=== PATIENT | female | born 1990 | race Caucasian/White ===

== ENCOUNTER → 2021-04-05 | Outpatient (CLI) | payer OTHER | LOC: LAB 10:06 | DX: Z32.00 Encounter for pregnancy test, result unknown (principal) | CPT/HCPCS: 36415; 84702 ==

== ENCOUNTER → 2021-04-07 | Outpatient (CLI) | payer OTHER | LOC: LAB 11:29 | DX: Z32.01 Encounter for pregnancy test, result positive (principal) | CPT/HCPCS: 36415; 84702 ==

== ENCOUNTER → 2021-04-14 | Outpatient (CLI) | payer OTHER | LOC: LAB 09:40 | DX: Z32.01 Encounter for pregnancy test, result positive (principal) | CPT/HCPCS: 36415; 84702 ==

== ENCOUNTER 2021-06-05 19:05 | Emergency (ER) | payer BC, OTHER ==
[2021-06-05 23:24] LABS: HEMOGLOBIN 11.9 gm/dl (12.3-15.3); RED BLOOD COUNT 5.21 M/UL (4.00-5.10); WHITE BLOOD COUNT 11.6 K/UL (4.5-11.0)
[2021-06-05 23:56] LABS: BUN/CREATININE RATIO 19 (0-10)
== END 2021-06-06 05:47 | disposition home or self-care (01) ==
LOC: ER1 19:05
PROVIDERS: Physician Assistant
DX: O21.0 Mild hyperemesis gravidarum (principal); Z3A.12 12 weeks gestation of pregnancy
CPT/HCPCS: 80053; 81001; 85025; 87086; 96374; 99284; J2765

== ENCOUNTER 2021-08-01 16:58 | Emergency (ER) | payer BC, OTHER ==
[2021-08-01 18:11] LABS: HEMOGLOBIN 10.1 gm/dl (12.3-15.3); RED BLOOD COUNT 4.31 M/UL (4.00-5.10); WHITE BLOOD COUNT 9.3 K/UL (4.5-11.0)
[2021-08-01 18:36] LABS: BUN/CREATININE RATIO 12 (0-10)
== END 2021-08-01 19:40 | disposition home or self-care (01) ==
LOC: ER1 16:58
PROVIDERS: Emergency Medicine
DX: M79.89 Other specified soft tissue disorders (principal)
CPT/HCPCS: 80053; 83615; 83880; 84550; 85025; 93971; 99283

== ENCOUNTER 2021-09-11 15:58 | Emergency (ER) | payer BC, OTHER ==
[2021-09-11 17:04] LABS: HEMOGLOBIN 9.8 gm/dl (12.3-15.3); RED BLOOD COUNT 4.24 M/UL (4.00-5.10); WHITE BLOOD COUNT 11.8 K/UL (4.5-11.0)
[2021-09-11 17:36] LABS: BUN/CREATININE RATIO 9 (0-10)
== END 2021-09-11 18:39 | disposition home or self-care (01) ==
LOC: ER1 15:58
PROVIDERS: Emergency Medicine
DX: O99.891 Other specified diseases and conditions complicating pregnancy (principal); R07.89 Other chest pain; Z20.822 Contact with and (suspected) exposure to COVID-19; Z3A.26 26 weeks gestation of pregnancy
CPT/HCPCS: 71045; 80053; 81001; 82550; 82553; 83735; 83874; 84484; 85025; 93005; 99285; U0002

== ENCOUNTER 2021-09-13 19:42 | Outpatient (CLI) | payer BC, OTHER | END 2021-09-13 21:51 | disposition home or self-care (01) | LOC: GENOP 19:42 | DX: O99.891 Other specified diseases and conditions complicating pregnancy (principal); M54.9 Dorsalgia, unspecified; R11.0 Nausea; R10.9 Unspecified abdominal pain; N89.8 Other specified noninflammatory disorders of vagina; O36.8120 Decreased fetal movements, second trimester, not applicable or unspecified; O99.012 Anemia complicating pregnancy, second trimester; D64.9 Anemia, unspecified; Z3A.27 27 weeks gestation of pregnancy | CPT/HCPCS: 59025; 81001; 82731; 83518 ==

== ENCOUNTER 2021-09-17 16:31 | Outpatient (CLI) | payer BC, OTHER | END 2021-09-17 18:03 | disposition home or self-care (01) | LOC: GENOP 16:31 | DX: O36.8120 Decreased fetal movements, second trimester, not applicable or unspecified (principal); O99.012 Anemia complicating pregnancy, second trimester; D64.9 Anemia, unspecified; Z3A.27 27 weeks gestation of pregnancy | CPT/HCPCS: 59025 ==

== ENCOUNTER 2021-09-30 12:53 | Outpatient (CLI) | payer BC, OTHER | END 2021-09-30 15:25 | disposition home or self-care (01) | LOC: GENOP 12:53 | DX: O36.8130 Decreased fetal movements, third trimester, not applicable or unspecified (principal); O47.03 False labor before 37 completed weeks of gestation, third trimester; O99.891 Other specified diseases and conditions complicating pregnancy; N89.8 Other specified noninflammatory disorders of vagina; Z3A.29 29 weeks gestation of pregnancy | CPT/HCPCS: 81001; 83518; G0463 ==

== ENCOUNTER 2021-10-11 11:14 | Outpatient (CLI) | payer BC, OTHER ==
[~2021-10-11] VITALS: Ht 170.2 cm; Wt 84.4 kg
== END 2021-10-11 17:45 | disposition home or self-care (01) ==
LOC: GENOP 11:14
DX: O21.2 Late vomiting of pregnancy (principal); O99.891 Other specified diseases and conditions complicating pregnancy; R19.7 Diarrhea, unspecified; Z3A.31 31 weeks gestation of pregnancy
CPT/HCPCS: 81001; 96360; 96361; 96367; 96374; C9113; J2405; J2550; J7120

== ENCOUNTER 2021-10-17 05:38 | Observation (INO) | payer BC, OTHER | END 2021-10-17 09:22 | disposition home or self-care (01) | LOC: CDU 05:38 | PROVIDERS: ADMIT Obstetrics & Gynecology | DX: O47.03 False labor before 37 completed weeks of gestation, third trimester (principal); O99.013 Anemia complicating pregnancy, third trimester; D64.9 Anemia, unspecified; Z3A.32 32 weeks gestation of pregnancy | CPT/HCPCS: 59025; 81001; 82731; 96360; 96361; G0378; G0379 ==

== ENCOUNTER 2021-10-18 18:51 | Outpatient (CLI) | payer BC, OTHER | END 2021-10-18 20:24 | disposition home or self-care (01) | LOC: GENOP 18:51 → EDSTATUS 19:08 → GENOP 20:24 | DX: O36.8130 Decreased fetal movements, third trimester, not applicable or unspecified (principal); Z3A.32 32 weeks gestation of pregnancy | CPT/HCPCS: G0463 ==

== ENCOUNTER 2021-11-06 07:52 | Outpatient (CLI) | payer BC, OTHER | END 2021-11-06 10:40 | disposition home or self-care (01) | LOC: GENOP 07:52 | DX: O47.03 False labor before 37 completed weeks of gestation, third trimester (principal); Z3A.34 34 weeks gestation of pregnancy | CPT/HCPCS: 81001; G0463 ==

== ENCOUNTER 2021-11-26 18:47 | Outpatient (CLI) | payer BC, OTHER | END 2021-11-26 20:02 | disposition home or self-care (01) | LOC: GENOP 18:47 | DX: O99.891 Other specified diseases and conditions complicating pregnancy (principal); O36.8130 Decreased fetal movements, third trimester, not applicable or unspecified; O99.013 Anemia complicating pregnancy, third trimester; M54.9 Dorsalgia, unspecified; R10.30 Lower abdominal pain, unspecified; Z3A.37 37 weeks gestation of pregnancy; D64.9 Anemia, unspecified | CPT/HCPCS: G0463 ==

== ENCOUNTER 2021-12-04 16:53 | Inpatient (IN) | payer BC, OTHER ==
[~2021-12-04] VITALS: Ht 170.2 cm; Wt 87.5 kg
[2021-12-04 17:59] LABS: HEMOGLOBIN 9.1 gm/dl (12.3-15.3); RED BLOOD COUNT 4.32 M/UL (4.00-5.10); WHITE BLOOD COUNT 11.5 K/UL (4.5-11.0)
[2021-12-04] MEDS ORDERED: PRENATAL VITAM1 EAC8 PO (18:08)
[2021-12-04] MEDS ORDERED: FERROUS SULFAT325 M2 PO (18:08)
[2021-12-05 20:24] LABS: HEMOGLOBIN 9.8 gm/dl (12.3-15.3); RED BLOOD COUNT 4.53 M/UL (4.00-5.10)
[2021-12-05 20:28] LABS: WHITE BLOOD COUNT 17.6 K/UL (4.5-11.0)
[2021-12-05] MEDS ORDERED: IBUPROFEN600 MG PO (22:12)
[2021-12-05] MEDS ORDERED: COLACE 100MG C100 MG PO (22:12)
== END 2021-12-07 14:45 | disposition home or self-care (01) | DRG 806 ==
LOC: GENOP 16:53 → OB 17:17
PROVIDERS: Obstetrics & Gynecology; ADMIT Obstetrics & Gynecology
PROC: 30233N1 Transfusion of Nonautologous Red Blood Cells into Peripheral Vein, Percutaneous Approach (ICD-10-PCS; principal; 2021-12-05)
PROC: 10E0XZZ Delivery of Products of Conception, External Approach (ICD-10-PCS; 2021-12-05)
PROC: 10907ZC Drainage of Amniotic Fluid, Therapeutic from Products of Conception, Via Natural or Artificial Opening (ICD-10-PCS; 2021-12-05)
PROC: 3E033VJ Introduction of Other Hormone into Peripheral Vein, Percutaneous Approach (ICD-10-PCS; 2021-12-05)
PROC: 3E0DXGC Introduction of Other Therapeutic Substance into Mouth and Pharynx, External Approach (ICD-10-PCS; 2021-12-05)
PROC: 10D07Z8 Extraction of Products of Conception, Other, Via Natural or Artificial Opening (ICD-10-PCS; 2021-12-05)
DX: O99.02 Anemia complicating childbirth (principal); O72.1 Other immediate postpartum hemorrhage; Z37.0 Single live birth; D64.9 Anemia, unspecified; O13.4 Gestational [pregnancy-induced] hypertension without significant proteinuria, complicating childbirth; O43.213 Placenta accreta, third trimester; Z3A.38 38 weeks gestation of pregnancy; Z98.51 Tubal ligation status; Z83.3 Family history of diabetes mellitus; Z82.49 Family history of ischemic heart disease and other diseases of the circulatory system; Z80.1 Family history of malignant neoplasm of trachea, bronchus and lung
CPT/HCPCS: 36415; 81001; 85014; 85018; 85025; 85610; 85730; 86850; 86900; 86901; 86920; G0378; J1956; J2250; J2270; J2370; J2590; J3010; J7120; P9016